=== PATIENT | male | born 1965 | race Caucasian/White ===

== ENCOUNTER 2017-12-17 16:30 | Outpatient (CLI) | payer OTHER | END 2017-12-17 16:31 | disposition home or self-care (01) | DRG 556 | LOC: CONVCARE 16:30 | PROVIDERS: ATTEND Orthopaedic Surgery | DX: M25.562 Pain in left knee (principal) | CPT/HCPCS: 73700 ==

== ENCOUNTER 2018-03-04 11:10 | Outpatient (CLI) | payer OTHER | END 2018-03-04 11:11 | disposition home or self-care (01) | DRG 561 | LOC: CONVCARE 11:10 | PROVIDERS: ATTEND Orthopaedic Surgery | DX: S82.142D Displaced bicondylar fracture of left tibia, subsequent encounter for closed fracture with routine healing (principal); S92.002D Unspecified fracture of left calcaneus, subsequent encounter for fracture with routine healing | CPT/HCPCS: 73564; 73650 ==

== ENCOUNTER 2018-04-09 08:40 | Outpatient (CLI) | payer OTHER | END 2018-04-09 08:41 | disposition home or self-care (01) | DRG 561 | LOC: CONVCARE 08:40 | PROVIDERS: ATTEND Orthopaedic Surgery | DX: S92.002D Unspecified fracture of left calcaneus, subsequent encounter for fracture with routine healing (principal); S82.142D Displaced bicondylar fracture of left tibia, subsequent encounter for closed fracture with routine healing | CPT/HCPCS: 73564 ==